=== PATIENT | female | born 1980 | race Caucasian/White ===

== ENCOUNTER 2017-07-08 17:11 | Emergency (ER) | payer MEDICAID ==
--- NOTE | 2017-07-08 17:51 | ERNOTE ---
Upper Extremity HPI - Narrative Date of Service: 07/08/17 - General Extremities Pain Location: shoulder: right, other: right - ribs Time Seen by Provider: 07/08/17 17:48 Source: patient, RN notes reviewed Exam Limitations: no limitations - Immun/Allergies/Home Medications Immunizations: IMMUNIZATION HX Immunizations Up to Date Yes History of Influenza Vaccine Yes Hx Pneumococcal Vaccination Yes Allergies/Adverse Reactions: Allergies Allergy/AdvReac Type Severity Reaction Status Date / Time No Known Allergies Allergy Verified 07/08/17 17:38 Home Medications: HOME MEDICATIONS Ranitidine HCl [Zantac] 1 tab PO BID 12/01/14 [Last Taken 11/30/14 10:00 1 tab] HYDROcodone/ACETAMINOPHEN [[place] 5-325] 1 tab PO Q6H PRN #12 tab 07/08/17 [Last Taken Unknown] Ibuprofen [Motrin] 600 mg PO Q6H PRN #40 tab 07/08/17 [Last Taken Unknown] - History of Present Illness Narrative: 37 year old female ambulatory to the ED for pain in her right lateral ribs and shoulder region. She was jumping on a trampoline and was struck by someone else' s knee in the ribs. She had been having shoulder pain and received steroid injections. Her shoulder was doing better but she reports it is now painful again as well. She took Tylenol without any improvement. Occurred: this afternoon Location of Incident: home Severity: mild Method of Injury: Reports: direct blow Loss of Consciousness: Reports: no loss of consciousness Modifying Factors - (Improves): Reports: rest Modifying Factors - (Worsens): Reports: movement Other Injuries: Reports: none Prior Treament: Denies: recently seen Review of Systems - Review of Systems Constitutional: Absent: recent illness, fever, malaise EYE: Present: no symptoms reported ENT: Present: no symptoms reported Respiratory: Absent: shortness of breath, wheezing Cardiology: Present: chest pain. Absent: palpitations, syncope Gastrointestinal/Abdominal: Absent: nausea, vomiting, abdominal pain Genitourinary: Absent: pain, hematuria Musculoskeletal: Present: muscle pain, joint pain. Absent: neck pain, joint swelling Skin: Absent: lesions, lumps, change in color Neurological: Absent: weakness, numbness, tingling Endocrine: Present: no symptoms reported Hematologic/Lymphatic: Present: no symptoms reported Psych: Present: no symptoms reported - Patient's Past Medical History Patient History - Medical: Migraines Patient History - Cardiac/Respiratory: No pertinent hx Patient History - Cancer: No Hx of Cancer Patient History - Surgical Procedures: Cholecystectomy, , Other Patient History - Other: None LMP (females 10-50): last week - Family History Mother Family History - Medical: No pertinent hx Family History - Cardiac/Respiratory: Hypertension Father Family History - Medical: No pertinent hx Family History - Cardiac/Respiratory: No pertinent hx - Social History Living Situations: home Abuse History: No History of abuse Psych History: Hx of Anxiety Smoking Status: Current every day smoker Alcohol Use: none Drug Use: none - Immunizations Immunizations Up to Date: Yes Hx Pneumococcal Vaccination: Yes History of Influenza Vaccine: Yes Physical Exam - Physical Exam General Appearance: Present: wd/wn, alert, no apparent distress Head Exam: Present: normal inspection, no evidence of injury Neck: Present: normal inspection, nontender, supple, full range of motion Respiratory: Present: no respiratory distress, normal breath sounds, no accessory muscle use, lungs clear, chest tenderness - Right upper lateral ribs Cardiovascular/Chest: Present: regular rate, rhythm, no murmur, normal peripheral pulses Extremity Exam: Present: normal inspection, normal range of motion, no edema, other - diffuse tenderness in right shoulder Neurological Exam: Present: alert, oriented, normal mood/affect, no motor/ sensory deficits Skin Exam: Present: normal color, warm/dry ED Progress - Vital Signs Patient's Vital Signs:: I have reviewed the patient's vital signs. Vital Signs: Vital Signs 07/08/17 17:34 Temperature 36.5 C Pulse Rate 90 Respiratory 18 Rate Blood Pressure 134/78 O2 Sat by Pulse 99 Oximetry - Progress/Reassessment Chief Complaint: Shoulder Injury/Pain Progress:: Unchanged Plan - Plan Plan: Discussed bruised ribs vs. broken ribs and lack of difference in treatment, offered to do xray if desired but patient declined. No meds given in ED as patient drove herself here. Departure Clinical Impression: Contusion of rib on right side Qualifiers: Encounter type: initial encounter Qualified Code(s): S20.211A - Contusion of right front wall of thorax, initial encounter - Departure Disposition: Home self-care Condition: Good Instructions: Rib Contusion Referrals: Zoila Elizalde FNP [Primary Care Provider] - Prescriptions: HYDROcodone/ACETAMINOPHEN [[place] 5-325] 1 tab PO Q6H PRN #12 tab PRN Reason: Pain Ibuprofen [Motrin] 600 mg PO Q6H PRN #40 tab PRN Reason: Pain
[2017-07-08 18:33] VITALS: BP 120/77
== END 2017-07-08 18:15 | disposition home or self-care (01) ==
LOC: ER 17:11
DX: S20.211A Contusion of right front wall of thorax, initial encounter (principal); F17.200 Nicotine dependence, unspecified, uncomplicated; W50.0XXA Accidental hit or strike by another person, initial encounter; Y93.44 Activity, trampolining; Y92.009 Unspecified place in unspecified non-institutional (private) residence as the place of occurrence of the external cause

== ENCOUNTER 2017-08-27 06:58 | Day surgery (SDC) | payer MEDICAID ==
[~2017-08-27 06:58] MED LIST: RINGER'S SOLUTION,LACTATED 1,000 ML IV PRN
[2017-08-27 07:18] LABS: Hematocrit 41.3 % (37.0-47.0); Hemoglobin 13.6 gm/dL (12.5-16.0); Mean Cell Volume 88.8 fl (78-100); Mean Corpuscular Hemoglobin 29.2 pg (27-31); Mean Corpuscular Hgb Conc 32.9 g/dl (32-36); Mean Platelet Volume 11.9 fl (6.0-9.5); Neutrophil % 64.4 % (42-75.0); Platelet Count 176 K/mm3 (150-450); Red Blood Count 4.65 M/mm3 (4.2-5.4); Red Cell Distribution Width 12.6 % (11.5-14.0); White Blood Count 9.3 K/mm3 (4.0-10.5)
[2017-08-27] MEDS ORDERED: BUPIVACAINE HCL 50 ML VIAL IJ ONE ×2 (08:20)
[2017-08-27] MEDS ORDERED: RINGER'S SOLUTION,LACTATED 1,000 ML IV PRN (09:49)
--- NOTE | 2017-08-27 09:49 | OR ---
Operative Report - Dictated Report Narrative: Date of Procedure: 08/27/2017 PROCEDURE: Laparoscopic bilateral salpingectomy ANESTHESIA: General, endotracheal intubation. PREOPERATIVE DIAGNOSIS: 1. Multiparity desiring sterilization with bilateral salpingectomy. POSTOPERATIVE DIAGNOSES: 1. Multiparity desiring sterilization with bilateral salpingectomy. SURGEON: Marline Amaya MD FLOOR LAYER APPRENTICE: Antonietta Lao FINDINGS: Normal uterus, ovaries and tubes. SPECIMEN: 1. right fallopian tube 2. left fallopian tube DRAINS: None. URINE OUTPUT: not measured, voided before procedure. BLOOD LOSS: 10 ml INTRAOPARATIVE IV FLUIDS: 1500 ml COMPLICATIONS: None. DESCRIPTION OF PROCEDURE: The patient consented prior to the operation and taken to the operating room. She was placed on the operating table supine. SCDs were placed on her lower extremities. General anesthesia was induced. She was repositioned in the dorsal lithotomy position. Her right arm was tucked at her side under the drape. Exam under anesthesia revealed a normal size uterus with no palpable adnexal mass. The abdomen was prepped with Chloroprep and the vagina was prepped with Betadine. She was draped in the usual sterile fashion. A time- out procedure was conducted to confirm the correct patient for the correct procedure. A bivalve speculum was placed into the vagina. The cervix was visualized. The vagina and the cervix were prepped with Betadine one more time. The anterior cervix was grasped with a single-tooth tenaculum. The uterus was sounded to 10 cm. A Zumi uterine manipulator was inserted into the uterine cavity. The balloon was inflated with 5 cc of air. The single-tooth tenaculum was removed. [place] speculum was removed. The surgeon then changed gloves and attention was paid to the abdomen. A small vertical incision was made at the lower edge of the umbilicus. A Veress needle was inserted into the abdominal cavity. Intraabdominal placement was confirmed with a saline drop test and with an entry pressure of 7 mmHg. The abdomen was insufflated with CO2 gas to an intraabdominal pressure of 15 mmHg. The Veress needle was removed. A 5 mm trocar with the laparoscope was inserted through the umbilicus incision into the abdomen. Intraabdominal placement was confirmed with the laparoscope. Survey of the entry site revealed no trauma to the underlying structures. Survey of the upper abdomen revealed a normal- appearing liver. There was small bleeding from the umbilical trocar, but this stopped after a few minutes. The patient was then placed in Trendelenburg position. A right and a left lower quadrant trocar (5 mm) were placed superior and medial to the anterior superior iliac spine to avoid the vessels and nerves. A fourth trocar (8 mm) was placed suprapubically in the midline. All trocars were placed under the direct visualization of the laparoscope. Survey of the pelvis revealed the findings noted above. Next the right fallopian tube was elevated. The mesosalpinx was divided with the Thunderbeat. The division was carried to the cornual region. The right fallopian tube was divided at the uterine cornue using the Thunderbeat. The right tube was removed through the 8 mm trocar. Attention was turned to the left side. The left fallopian tube was elevated and the mesosalpinx was divided with the Thunderbeat. The division was carried to the cornual region. The left fallopian tube was divided at the uterine cornue. The left tube was removed through the 8 mm trocar. The pelvis and abdomen were irrigated with saline due to small bleeding from the umbilical trocar. There was hemostasis at this time. The lower abdominal trocars were removed under direct visualization of the laparoscope. The abdomen was deflated. The trocar at the umbilicus was removed with the laparoscope. The skin incisions were closed with 4-0 Monocryl suture. The incision was infiltrated with 2-3 ml of 0.25% Marcaine for post op pain control. The incision was covered with steri strips. The Zumi uterine manipulator was removed. There was no bleeding from the vagina. Sponge, laps and needle counts were correct x 2. The patient tolerated the procedure well and taken to the recovery room in stable condition. Marline Amaya MD
[2017-08-27] MEDS ORDERED: IBUPROFEN 800 MG TABLET PO ONE (10:15)
[2017-08-27] MEDS ORDERED: IBUPROFEN 800 MG TABLET ONE (11:54)
[2017-08-27] MEDS: oxyCODONE HCL/ACETAMINOPHEN 1 TAB TABLET PO ONE ×2 (11:54→12:15)
[2017-08-27] MEDS ORDERED: oxyCODONE HCL/ACETAMINOPHEN 1 TAB TABLET ONE (11:54)
[2017-08-27 13:13] VITALS: BP 97/53
== END 2017-08-27 06:59 | disposition home or self-care (01) ==
LOC: AMB 06:58
PROVIDERS: ATTEND Obstetrics & Gynecology
PROC: 0UT74ZZ Resection of Bilateral Fallopian Tubes, Percutaneous Endoscopic Approach (ICD-10-PCS; principal; 2017-08-27 08:00)
DX: Z30.2 Encounter for sterilization (principal); E66.9 Obesity, unspecified; Z68.34 Body mass index [BMI] 34.0-34.9, adult; F17.200 Nicotine dependence, unspecified, uncomplicated